=== PATIENT | female | born 1990 | race Caucasian/White ===

== ENCOUNTER 2019-07-25 03:51 | Emergency (ER) | payer OTHER ==
[~2019-07-25] VITALS: Ht 162.6 cm; Wt 63.0 kg
[2019-07-25] MEDS ORDERED: DIPH,PERTUSS(ACELL),TET VAC/PF 0.5 ML IM-VACC ONE ×2 (04:00→04:06)
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
[2019-07-25] MEDS ORDERED: HYDROmorphone 1 MG/ML, 1ML VIAL ONE ×2 (04:06→05:42)
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
[2019-07-25] MEDS: HYDROmorphone 2 MG/ML, 1ML IVPush PRN ×2 (04:15→05:49)
--- NOTE | 2019-07-25 04:15 | NUR ---
patient medicated for pain.
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
--- NOTE | 2019-07-25 04:21 | NUR ---
CONTACTED [facility] PER REQUEST OF DR PARNELL. SPOKE TO YAO AT THE TRANSFER CENTER, INFO GIVEN. DR VIVAS IS FELLOW, DR DAVALOS IS ATTENDING. DR PARNELL SPEAKING WITH DR VIVAS AT THIS TIME.
[2019-07-25] MEDS ORDERED: NEOSPORIN OINT. PKT 1 PACKET ONE (04:30)
[2019-07-25 04:31] LABS: BASOPHILS # (AUTO) 0.04 x10^3/uL (0-0.1); BASOPHILS % (AUTO) 0 % (0-1); EOSINOPHILS # (AUTO) 0.08 x10^3/uL (0-0.4); EOSINOPHILS % (AUTO) 1 % (1-7); LYMPHOCYTES # (AUTO) 3.48 x10^3/uL (1-3.4); LYMPHOCYTES % (AUTO) 37 % (22-44); MD NO; MEAN CORPUSCULAR HEMOGLOBIN 33.5 pg (27.0-34.8); MEAN CORPUSCULAR HGB CONC 33.4 g/dL (32.4-35.8); MEAN CORPUSCULAR VOLUME 100.2 fL (80-100); MEAN PLATELET VOLUME 8.1 fL (7.4-10.4); MONOCYTES # (AUTO) 0.61 x10^3/uL (0.2-0.8); MONOCYTES % (AUTO) 7 % (2-9); NEUTROPHILS # (AUTO) 5.17 x10^3/uL (1.8-6.8); NEUTROPHILS % (AUTO) 55 % (42-75); PLATELET COUNT 252 x10^3/uL (130-400); RED BLOOD COUNT 4.11 x10^6/uL (3.82-5.3); RED CELL DISTRIBUTION WIDTH 12.5 % (9.6-15.2)
--- NOTE | 2019-07-25 04:40 | NUR ---
WOUND CLEANED. BACITRACIN APPLIED.
[2019-07-25 04:43] LABS: ALBUMIN 3.8 g/dL (3.4-5.0); ANION GAP 10 mmol/L (5-15); CALCIUM 8.3 mg/dL (8.5-10.1); CHLORIDE 110 mmol/L (98-107); CREATININE 0.74 mg/dL (0.55-1.02)
[2019-07-25] MEDS ORDERED: OXYcodone/APAP 10/325MG TABLET ONE (04:57)
[2019-07-25] MEDS ORDERED: SODIUM CHLORIDE 0.9% 1,000ML IVBOLUS ONE (05:00)
[2019-07-25] MEDS ORDERED: OXYcodone/APAP 10/325MG TABLET PO ONE (05:00)
--- NOTE | 2019-07-25 05:05 | NUR ---
oral pain medication given.
[2019-07-25] MEDS ORDERED: LORazepam 2 MG/ML, 1ML ONE (05:27)
[2019-07-25] MEDS ORDERED: LORazepam 2 MG/ML, 1ML IVPush ONE (05:30)
--- NOTE | 2019-07-25 05:34 | NUR ---
re-evaluation done by ERP. patient states that she cant have a full breath. medicated for anxiety.
--- NOTE | 2019-07-25 05:37 | NUR ---
md updated for patient condition. patient states that her throat became scratchy and still cant have full breath. pain still 6-04/08.
--- NOTE | 2019-07-25 05:45 | NUR ---
PT TO BE TRANSFERRED TO [facility]. REPAGED DR VIVAS AT THIS TIME. INFO FAXED TO JOSE
--- NOTE | 2019-07-25 05:50 | NUR ---
CONSENT FOR TRANSFER SIGNED BY PT AND THIS RN. TRANSFER FORM SIGNED BY
--- NOTE | 2019-07-25 05:53 | NUR ---
SPOKE TO YAO AT THE TRANSFER CENTER. HE STATES NO FURTHER DOC TO DOC NEEDED AND PT WILL BE ACCEPTED DIRECTLY TO THEIR ER. TRANSFER REQUESTED THROUGH [facility]. NUMBER FOR RN REPORT
--- NOTE | 2019-07-25 05:57 | NUR ---
CORRECTION TO ACCEPTING DR NAME DR LILLY
--- NOTE | 2019-07-25 05:59 | NUR ---
[id number]
--- NOTE | 2019-07-25 06:13 | NUR ---
[facility] CALL[facility] AND STATES NEW ETA IS [id number]
--- NOTE | 2019-07-25 06:23 | NUR ---
patient's face wrapped with adaptic and dry gauzes.
[2019-07-25] MEDS ORDERED: HYDROmorphone 2 MG/ML, 1ML IVPush PRN (06:30)
--- NOTE | 2019-07-25 06:47 | NUR ---
report to given to central control room operator Kelly at [facility].
[2019-07-25 06:48] VITALS: BP 129/78
== END 2019-07-25 06:53 | disposition short-term general hospital (02) ==
LOC: ED 04:10
DX: T20.26XA Burn of second degree of forehead and cheek, initial encounter (principal); T20.24XA Burn of second degree of nose (septum), initial encounter; T20.22XA Burn of second degree of lip(s), initial encounter; T31.0 Burns involving less than 10% of body surface; F17.200 Nicotine dependence, unspecified, uncomplicated; X08.8XXA Exposure to other specified smoke, fire and flames, initial encounter; Y93.89 Activity, other specified; Y92.89 Other specified places as the place of occurrence of the external cause; Y99.8 Other external cause status
CPT/HCPCS: 16020; 36415; 71045; 80048; 82040; 84703; 85025; 90471; 90715; 93005; 96374; 96375; 96376; 99285; J1170; J2060; J7030

== ENCOUNTER 2021-04-03 17:05 | Emergency (ER) | payer SELFPAY ==
[~2021-04-03] VITALS: Ht 154.9 cm; Wt 71.1 kg
[2021-04-03 17:13] VITALS: BP 123/86
--- NOTE | 2021-04-03 18:06 | NUR ---
PATIENT NEEDING PAIN MEDS
[2021-04-03] MEDS ORDERED: MUPIROCIN OINT 2%, 22GM TP ONE (18:30)
== END 2021-04-03 19:52 | disposition home or self-care (01) ==
LOC: ED 17:35
DX: M79.621 Pain in right upper arm (principal); L03.113 Cellulitis of right upper limb
CPT/HCPCS: 99283